=== PATIENT | male | born 1990 | race Caucasian/White ===

== ENCOUNTER → 2021-08-22 12:00 | Outpatient (CLI) | payer OTHER, SELFPAY ==
--- NOTE | ~2021-08-22 | XR_ITS ---
XR lumbar spine 2-3V DATE: 08/22/2021 12:27 INDICATION: Chronic bilateral low back pain with left sciatica TECHNIQUE: AP, lateral, lumbosacral views COMPARISON: None FINDINGS: There is minimal dextroscoliosis. No fracture or dislocation or spondylolisthesis. The dylan mbar pedicles are intact. The lumbar pedicles are intact. The lumbar and lumbosacral interspaces are preserved. The sacroiliac joints are intact. The lumbar and lumbosacral interspaces are relatively preserved IMPRESSION: Minimal scoliosis Reviewed, dictated and finalized at location B. IMPRESSION: Minimal scoliosis
== END ==
PROVIDERS: PCP Physician Assistant; Visit Provider Physician Assistant
DX: M54.42 Lumbago with sciatica, left side (principal); G89.29 Other chronic pain
CPT/HCPCS: 72100

== ENCOUNTER 2021-11-13 14:10 | Emergency (ER) | payer OTHER, SELFPAY ==
--- NOTE | ~2021-11-13 | XR_ITS ---
EXAMINATION: XR chest 1V portable EXAM DATE: 11/13/2021 15:35 INDICATION: cough fever . TECHNIQUE: Portable AP frontal chest x-ray was obtained. There is no prior study for comparison. FINDINGS: There is moderate hyperinflation. No confluent consolidation, pneumothorax or pleural effus ion suspected. Cardiomediastinal silhouette is normal. There are no osseous abnormalities identified. IMPRESSION: Hyperinflation. Reviewed, dictated and finalized at location A. PULLER IMPRESSION: Hyperinflation.
[2021-11-13 14:13] VITALS: BP 130/65; PULSE 104; RESP 18; TEMP 37.9; O2SAT 100
--- NOTE | 2021-11-13 15:07 | PC.NURSE ---
Patient believes that he was exposed to COVID over the holidays due to symptoms that started yesterday. No other concerns at this time.
[2021-11-13 15:30] VITALS: BP 100/69; PULSE 90; RESP 18; O2SAT 100
--- NOTE | 2021-11-13 16:01 | ED.GENADULT ---
HPI - General Adult General Chief complaint: Shortness of Breath/Dyspnea Stated complaint: shortness of breath, weak, fever Time Seen by Provider: 11/13/21 15:13 Source: patient Mode of arrival: ambulatory History of Present Illness HPI narrative: Patient is a 31-year-old male COVID vaccinated, presenting with chief complaint of fever, headache, congestion, body aches with cough that began yesterday. Patient reports today he feels having a difficult time taking a deep breath. He reports he began breathing faster which caused him to feel worse. Patient states he is no longer feeling short of breath. He denies chest pain. He denies inablity to eat and drink. Patient reports he has psoriasis. Related Data Home Medications Medication Instructions Recorded Confirmed No Home Medications 11/13/21 11/13/21 Allergies Allergy/AdvReac Type Severity Reaction Status Date / Time No Known Allergies Allergy Verified 11/13/21 15:07 Review of Systems Review of Systems: CONSTITUTIONAL: Reports fever, body aches, chills Denies sweats. EYES: Denies visual changes, redness, or discharge. ENT: Denies rhinorrhea, congestion, sore throat, or otalgia. CARDIOVASCULAR: Denies chest pain, palpitations, or edema. RESPIRATORY: Reports cough Denies present dyspnea. GASTROINTESTINAL: Denies abdominal pain, nausea, vomiting, or diarrhea. GENITOURINARY: Denies dysuria or hematuria. SKIN: Denies rash or itching. MUSCULOSKELETAL: Denies back pain, joint pain, or myalgia. NEUROLOGIC: Denies headache, numbness, dizziness, or weakness. PSYCHIATRIC: Denies anxiety or depression. Exam Narrative: GENERAL: Well-appearing, well-nourished. Warm to touch. HEAD: Normocephalic, atraumatic. EYES: PERRLA and EOMI. CHEST: Clear to auscultation. No respiratory distress. No wheezes rales or rhonchi. No tachypnea. HEART: Regular rate and rhythm. Normal peripheral pulses. SKIN: Warm, dry, no rash. NEURO: No focal deficits. Alert and oriented x3. PSYCH: Normal mood and affect. Course Vital Signs Vital signs: Vital Signs Temperature 100.2 F H 11/13/21 14:13 Pulse Rate 104 H 11/13/21 14:13 Respiratory Rate 18 11/13/21 14:13 Blood Pressure 130/65 11/13/21 14:13 Pulse Oximetry 100 11/13/21 14:13 Temperature 100.2 F H 11/13/21 14:13 Pulse Rate 90 11/13/21 15:30 Respiratory Rate 18 11/13/21 15:30 Blood Pressure 100/69 11/13/21 15:30 Pulse Oximetry 100 11/13/21 15:30 Medical Decision Making MDM Narrative Medical decision making narrative: Patient influenza test negative. Patient vitals are stable. Patient not hypoxic or toxic. Chest x-ray is negative for signs of bacterial pneumonia. Patient tested for Covid and given quarantine instructions and return ER instructions. Differential Diagnosis Differential Diagnosis: Covid, pneumonia, influenza, viral infection Vital Signs Vital Signs: Vital Signs Temperature 100.2 F H 11/13/21 14:13 Pulse Rate 104 H 11/13/21 14:13 Respiratory Rate 18 11/13/21 14:13 Blood Pressure 130/65 11/13/21 14:13 Pulse Oximetry 100 11/13/21 14:13 Temperature 100.2 F H 11/13/21 14:13 Pulse Rate 90 11/13/21 15:30 Respiratory Rate 18 11/13/21 15:30 Blood Pressure 100/69 11/13/21 15:30 Pulse Oximetry 100 11/13/21 15:30 Lab Data Labs: Influenza A Screen Negative Reference Range: Negative Influenza B Screen Negative Reference Range: Negative Imaging Data Radiologist's impression: ITS Impressions Chest X-Ray 11/13/21 15:35 IMPRESSION: Hyperinflation. Discharge Plan Discharge Clinical Impression: Person under investigation for COVID-19 Patient Disposition: Home, Self-Care Condition: Improved Instructions: Antibiotic Form, COVID-19: Slow the Coronavirus Spread (ED) Additional Instructions: Take ove
[2021-11-14 20:49] LABS: SARS-CoV-2 RNA PCR Positive
== END 2021-11-13 16:24 | disposition home or self-care (01) ==
PROVIDERS: Physician Assistant; Emergency Provider Emergency Medicine; PCP Physician Assistant
DX: U07.1 COVID-19 (principal)
CPT/HCPCS: 71045; 87804; 99283; C9803; U0003; U0005